=== PATIENT | male | born 1970 | race Caucasian/White ===

== ENCOUNTER 2021-09-24 18:16 | Inpatient (IN) | payer MEDICARE, MEDICAID ==
[~2021-09-24] VITALS: Ht 175.3 cm; Wt 195.0 kg
[2021-09-25 10:59] LABS: HEMOGLOBIN 14.2 gm/dl (14.0-17.5); RED BLOOD COUNT 5.15 M/UL (4.20-5.50); WHITE BLOOD COUNT 10.9 K/UL (4.5-11.0)
[2021-09-25] MEDS ORDERED: PREDNISONE20 MG PO (11:13)
[2021-09-25] MEDS ORDERED: POTASSIUM CHLO10 ME1 PO (11:14)
[2021-09-25] MEDS ORDERED: FUROSEMIDE20 MG PO (11:14)
[2021-09-25] MEDS ORDERED: METOPROLOL SUC100 MG PO (11:15)
[2021-09-25 12:20] LABS: BUN/CREATININE RATIO 20 (0-10)
[2021-09-26 05:45] LABS: HEMOGLOBIN 12.7 gm/dl (14.0-17.5); RED BLOOD COUNT 4.73 M/UL (4.20-5.50)
[2021-09-26 05:46] LABS: WHITE BLOOD COUNT 7.2 K/UL (4.5-11.0)
[2021-09-26 05:57] LABS: BUN/CREATININE RATIO 25 (0-10)
--- NOTE | 2021-09-26 12:27 | NUR ---
1150: PATIENT HAVING INCREASE IN END TITAL CO2 AND HEART RATE. I WENT INTO ASSESS THE PATIENT AND NOTICED HIS NECK WAS SWOLLEN AND HARD AT THE SITE OF THE CENTRAL LINE. I MOVED THE CURRENT MEDICATIONS INFUSING TO THE PERIPHREAL IV'S, CALLED DR. ROSE WHO ORDERED A STAT CHEST XRAY. 1158: DR. COLBY OBSERVED THE PATIENTS X-RAY AND DETERMINED THAT THE PATIENTS CENTAL LINE WAS OUT OF PLACE. DR. ROSE WAS CALLED WITH RESULTS AND ORDERED TO REMOVE THE CENTRAL LINE. 1202: CENTRAL LINE WAS REMOVED AND DRESSING PALCED OVER INCISION SITE. THE SWELLING HAS DECREASED AND THE AREA IS NOT RED OR WARM TO THE TOUCH. I WILL CONTINUE TO MONITOR THE SITE FOR SWELLING AND REDNESS. NO CENTRAL LINE IS BEING PLACED AT THIS TIME PER DR. ROSE.
[2021-09-27 05:09] LABS: RED BLOOD COUNT 4.65 M/UL (4.20-5.50)
[2021-09-28 05:38] LABS: HEMOGLOBIN 14.7 gm/dl (14.0-17.5); WHITE BLOOD COUNT 10.9 K/UL (4.5-11.0)
[2021-09-28 05:41] LABS: RED BLOOD COUNT 5.21 M/UL (4.20-5.50)
[2021-09-29 04:25] LABS: HEMOGLOBIN 14.5 gm/dl (14.0-17.5); RED BLOOD COUNT 5.24 M/UL (4.20-5.50)
[2021-09-29 04:31] LABS: BUN/CREATININE RATIO 43 (0-10)
[2021-09-29 04:34] LABS: WHITE BLOOD COUNT 5.9 K/UL (4.5-11.0)
[2021-09-30 04:26] LABS: HEMOGLOBIN 13.8 gm/dl (14.0-17.5); RED BLOOD COUNT 5.13 M/UL (4.20-5.50)
[2021-09-30 04:28] LABS: WHITE BLOOD COUNT 7.7 K/UL (4.5-11.0)
[2021-09-30 05:15] LABS: BUN/CREATININE RATIO 43 (0-10)
[2021-09-30 14:54] LABS: BUN/CREATININE RATIO 42 (0-10)
[2021-10-01 05:43] LABS: RED BLOOD COUNT 5.24 M/UL (4.20-5.50); WHITE BLOOD COUNT 6.8 K/UL (4.5-11.0)
[2021-10-01 06:28] LABS: BUN/CREATININE RATIO 34 (0-10)
[2021-10-01 15:27] LABS: BUN/CREATININE RATIO 34 (0-10)
[2021-10-02 05:38] LABS: HEMOGLOBIN 14.3 gm/dl (14.0-17.5); RED BLOOD COUNT 5.17 M/UL (4.20-5.50)
[2021-10-02 05:46] LABS: WHITE BLOOD COUNT 8.6 K/UL (4.5-11.0)
[2021-10-02 05:58] LABS: BUN/CREATININE RATIO 29 (0-10)
[2021-10-03 05:51] LABS: HEMOGLOBIN 14.2 gm/dl (14.0-17.5); RED BLOOD COUNT 5.18 M/UL (4.20-5.50); WHITE BLOOD COUNT 8.8 K/UL (4.5-11.0)
[2021-10-03 06:17] LABS: BUN/CREATININE RATIO 33 (0-10)
[2021-10-04 05:34] LABS: HEMOGLOBIN 13.3 gm/dl (14.0-17.5); RED BLOOD COUNT 4.97 M/UL (4.20-5.50); WHITE BLOOD COUNT 9.7 K/UL (4.5-11.0)
[2021-10-04 05:52] LABS: BUN/CREATININE RATIO 40 (0-10)
[2021-10-05 05:47] LABS: HEMOGLOBIN 13.6 gm/dl (14.0-17.5); RED BLOOD COUNT 4.96 M/UL (4.20-5.50); WHITE BLOOD COUNT 8.8 K/UL (4.5-11.0)
[2021-10-05 06:14] LABS: BUN/CREATININE RATIO 38 (0-10)
[2021-10-06 06:06] LABS: HEMOGLOBIN 13.5 gm/dl (14.0-17.5); RED BLOOD COUNT 4.96 M/UL (4.20-5.50); WHITE BLOOD COUNT 8.7 K/UL (4.5-11.0)
[2021-10-06 06:57] LABS: BUN/CREATININE RATIO 33 (0-10)
[2021-10-07 05:43] LABS: HEMOGLOBIN 13.7 gm/dl (14.0-17.5); RED BLOOD COUNT 5.03 M/UL (4.20-5.50); WHITE BLOOD COUNT 7.7 K/UL (4.5-11.0)
[2021-10-07 06:28] LABS: BUN/CREATININE RATIO 30 (0-10)
[2021-10-07 23:05] LABS: HEMOGLOBIN 13.3 gm/dl (14.0-17.5); RED BLOOD COUNT 4.91 M/UL (4.20-5.50)
[2021-10-07 23:25] LABS: BUN/CREATININE RATIO 39 (0-10)
[2021-10-08 05:32] LABS: HEMOGLOBIN 13.3 gm/dl (14.0-17.5); RED BLOOD COUNT 4.89 M/UL (4.20-5.50); WHITE BLOOD COUNT 9.6 K/UL (4.5-11.0)
[2021-10-08 06:20] LABS: BUN/CREATININE RATIO 39 (0-10)
[2021-10-09 05:37] LABS: HEMOGLOBIN 12.2 gm/dl (14.0-17.5); RED BLOOD COUNT 4.45 M/UL (4.20-5.50)
[2021-10-09 05:41] LABS: WHITE BLOOD COUNT 6.8 K/UL (4.5-11.0)
[2021-10-09 05:53] LABS: BUN/CREATININE RATIO 40 (0-10)
[2021-10-10 05:59] LABS: HEMOGLOBIN 11.4 gm/dl (14.0-17.5); RED BLOOD COUNT 4.16 M/UL (4.20-5.50)
[2021-10-10 06:14] LABS: BUN/CREATININE RATIO 28 (0-10)
[2021-10-11 08:05] LABS: RED BLOOD COUNT 4.4 M/UL (4.20-5.50); WHITE BLOOD COUNT 7.4 K/UL (4.5-11.0)
[2021-10-11 08:24] LABS: BUN/CREATININE RATIO 22 (0-10)
[2021-10-12 05:36] LABS: HEMOGLOBIN 12.6 gm/dl (14.0-17.5); RED BLOOD COUNT 4.57 M/UL (4.20-5.50); WHITE BLOOD COUNT 8.8 K/UL (4.5-11.0)
[2021-10-12 06:13] LABS: BUN/CREATININE RATIO 26 (0-10)
[2021-10-13 05:19] LABS: RED BLOOD COUNT 4.35 M/UL (4.20-5.50); WHITE BLOOD COUNT 8.8 K/UL (4.5-11.0)
[2021-10-13 05:41] LABS: BUN/CREATININE RATIO 33 (0-10)
[2021-10-14 05:06] LABS: HEMOGLOBIN 12.6 gm/dl (14.0-17.5); RED BLOOD COUNT 4.56 M/UL (4.20-5.50); WHITE BLOOD COUNT 8.1 K/UL (4.5-11.0)
[2021-10-14 05:33] LABS: BUN/CREATININE RATIO 31 (0-10)
[2021-10-15 05:28] LABS: HEMOGLOBIN 12.1 gm/dl (14.0-17.5); RED BLOOD COUNT 4.28 M/UL (4.20-5.50); WHITE BLOOD COUNT 7.5 K/UL (4.5-11.0)
[2021-10-15 05:55] LABS: BUN/CREATININE RATIO 32 (0-10)
[2021-10-16 05:38] LABS: HEMOGLOBIN 11.6 gm/dl (14.0-17.5); RED BLOOD COUNT 4.14 M/UL (4.20-5.50); WHITE BLOOD COUNT 7.6 K/UL (4.5-11.0)
[2021-10-16 05:57] LABS: BUN/CREATININE RATIO 33 (0-10)
[2021-10-17] MEDS ORDERED: LOPRESSOR 50 MG50 MG PEG (10:25)
[2021-10-17] MEDS ORDERED: NYSTATIN60 GM TOP (10:25)
[2021-10-17] MEDS ORDERED: BUDESONIDE0.5 MG/2 M NEB (10:25)
[2021-10-17] MEDS ORDERED: FENTANYL1 EACH TD (10:25)
[2021-10-17] MEDS ORDERED: PROTONIX 40 MG40 MG PEG (10:35)
[2021-10-17] MEDS ORDERED: CATAPRES 0.1MG0.1 MG PO (10:35)
[2021-10-17] MEDS ORDERED: ASPIRIN81 MG PO (10:35)
[2021-10-17] MEDS ORDERED: ELIQUIS 5 MG TAB5 MG PEG (10:35)
[2021-10-17] MEDS ORDERED: PERCOCET 5/325 T1 EA PEG (10:35)
[2021-10-17] MEDS ORDERED: STIMULANT LAXA1 EACH PO (10:35)
[2021-10-17] MEDS ORDERED: IPRAT-ALBUT 0.5-3 ML NEB (10:35)
[2021-10-17] MEDS ORDERED: MEROPENEM500 MG IV (10:53)
[2021-10-17] MEDS ORDERED: ZYVOX IV 6600 MG/300 IV (10:53)
[2021-10-17] MEDS ORDERED: HUMALOG 10100 UNITS/ SC (10:53)
== END 2021-10-17 19:30 | DRG 4 ==
LOC: CCU 09-25 08:45
PROVIDERS: Internal Medicine; Internal Medicine Pulmonary Disease; ADMIT Internal Medicine Infectious Disease
PROC: 8E0ZXY6 Isolation (ICD-10-PCS; principal; 2021-09-25)
PROC: 3E0333Z Introduction of Anti-inflammatory into Peripheral Vein, Percutaneous Approach (ICD-10-PCS; 2021-09-25)
PROC: XW033E5 Introduction of Remdesivir Anti-infective into Peripheral Vein, Percutaneous Approach, New Technology Group 5 (ICD-10-PCS; 2021-09-25)
PROC: XW033H5 Introduction of Tocilizumab into Peripheral Vein, Percutaneous Approach, New Technology Group 5 (ICD-10-PCS; 2021-09-25)
PROC: 5A1955Z Respiratory Ventilation, Greater than 96 Consecutive Hours (ICD-10-PCS; 2021-09-25)
PROC: 02HV33Z Insertion of Infusion Device into Superior Vena Cava, Percutaneous Approach (ICD-10-PCS; 2021-09-25)
PROC: 0DH63UZ Insertion of Feeding Device into Stomach, Percutaneous Approach (ICD-10-PCS; 2021-09-26)
PROC: 05HM33Z Insertion of Infusion Device into Right Internal Jugular Vein, Percutaneous Approach (ICD-10-PCS; 2021-09-27)
PROC: 3E033XZ Introduction of Vasopressor into Peripheral Vein, Percutaneous Approach (ICD-10-PCS; 2021-09-28)
PROC: B24BZZZ Ultrasonography of Heart with Aorta (ICD-10-PCS; 2021-10-04)
PROC: 0B9F8ZX Drainage of Right Lower Lung Lobe, Via Natural or Artificial Opening Endoscopic, Diagnostic (ICD-10-PCS; 2021-10-08)
PROC: 0B113F4 Bypass Trachea to Cutaneous with Tracheostomy Device, Percutaneous Approach (ICD-10-PCS; 2021-10-10)
PROC: 0DJ08ZZ Inspection of Upper Intestinal Tract, Via Natural or Artificial Opening Endoscopic (ICD-10-PCS; 2021-10-10)
DX: A41.89 Other specified sepsis (principal); U07.1 COVID-19; J12.82 Pneumonia due to coronavirus disease 2019; J80 Acute respiratory distress syndrome; R65.21 Severe sepsis with septic shock; J15.212 Pneumonia due to Methicillin resistant Staphylococcus aureus; G92.8 Other toxic encephalopathy; E66.2 Morbid (severe) obesity with alveolar hypoventilation; Z68.44 Body mass index [BMI] 60.0-69.9, adult; J44.0 Chronic obstructive pulmonary disease with (acute) lower respiratory infection; G72.81 Critical illness myopathy; E87.0 Hyperosmolality and hypernatremia; E87.2 Acidosis; E87.1 Hypo-osmolality and hyponatremia; N17.9 Acute kidney failure, unspecified; Z99.11 Dependence on respirator [ventilator] status; J98.11 Atelectasis; J64 Unspecified pneumoconiosis; E11.65 Type 2 diabetes mellitus with hyperglycemia; R53.81 Other malaise; E87.6 Hypokalemia; K59.00 Constipation, unspecified; E87.70 Fluid overload, unspecified; E87.5 Hyperkalemia; Z83.3 Family history of diabetes mellitus; Z99.81 Dependence on supplemental oxygen; Z98.890 Other specified postprocedural states; Z90.49 Acquired absence of other specified parts of digestive tract; Z79.899 Other long term (current) drug therapy; Z82.49 Family history of ischemic heart disease and other diseases of the circulatory system; Z79.01 Long term (current) use of anticoagulants; Z79.4 Long term (current) use of insulin; Z23 Encounter for immunization; Z79.82 Long term (current) use of aspirin; G72.9 Myopathy, unspecified; E11.40 Type 2 diabetes mellitus with diabetic neuropathy, unspecified
CPT/HCPCS: 36415; 36600; 71045; 74018; 80048; 80053; 82550; 82553; 82728; 82803; 82962; 83036; 83605; 83735; 83880; 84100; 84132; 84443; 85025; 85027; 85379; 85610; 86140; 87015; 87040; 87070; 87081; 87116; 87205; 87206; 93005; 94003; 94640; 94664; 94760; C1769; C9113; J0248; J0360; J0692; J1100; J1120; J1205; J1650; J1940; J2020; J2060; J2185; J2248; J2250; J2270; J2370; J2543; J2704; J3010; J3475; J7030; J7040; J7050; Q0249; Q9957